=== PATIENT | female | born 1975 | race Hispanic/Latino ===

== ENCOUNTER 2017-05-26 10:24 | Emergency (ER) | payer SELFPAY ==
[~2017-05-26] VITALS: Ht 157.5 cm; Wt 93.6 kg
[~2017-05-26 10:24] MED LIST: ZOFRAN4 MG/TAB PO
[2017-05-26 11:27] LABS: HEMATOCRIT 38.3 % (37.0-47.0); HEMOGLOBIN 12.5 g/dl (12.0-16.0); IMMATURE GRANULOCYTES 0.7 % (0.0-1.0); MEAN CELL VOLUME 91.2 fL CALC (80.0-100.0); MEAN CORPUSCULAR HGB 29.8 pG CALC (26.0-32.0); MEAN CORPUSCULAR HGB CONC 32.6 g/L CALC (32.0-36.0); NEUT# 4.24 thou/uL (2.00-7.15); RED BLOOD COUNT 4.2 mill/uL (4.20-5.60); RED CELL DISTRI WIDTH 14.4 % (11.5-15.5)
[2017-05-26 11:34] LABS: BARBITURATES NEGATIVE (NEGATIVE); COCAINE NEGATIVE (NEGATIVE); METHADONE NEGATIVE (NEGATIVE); OXCYCODONE NEGATIVE (NEGATIVE); TETRAHYDROCANNABIONOL NEGATIVE (NEGATIVE); TRICYLIC ANTIDEPRESSANTS NEGATIVE (NEGATIVE)
[2017-05-26 11:51] LABS: ALKALINE PHOSPHATASE 134 u/l (38-126); ANION GAP 17 (6-22 (CALC)); BILIRUBIN, TOTAL 0.5 mg/dL (0.0-1.4); BUN 12 mg/dL (7-17); BUN/CREATININE RATIO 18 (12-20 (CALC)); CALCIUM 9.2 mg/dL (8.4-10.2); CARBON DIOXIDE 20 mmol/l (22-30); CHLORIDE 113 mmol/l (95-108); CREATININE 0.7 mg/dL (0.5-1.0); GFR > 60 ML/MIN (>=60 (CALC)); GFR FOR AFR.AMER. > 60 ML/MIN (>=60 (CALC)); GLUCOSE 92 mg/dL (65-105); POTASSIUM 4.7 mmol/l (3.5-5.1); SGOT/AST 26 u/l (14-36); SGPT/ALT 37 u/l (9-52); SODIUM 145 mmol/l (137-146); TOTAL PROTEIN 7.3 g/dL (6.3-8.2)
[2017-05-26] MEDS ORDERED: ULTRAM50 M1 PO (12:38)
[2017-05-26] MEDS ORDERED: FLEXERIL PO (12:38)
[2017-05-26 13:15] VITALS: BP 131/64
== END 2017-05-26 13:15 | disposition home or self-care (01) | DRG 552 ==
LOC: ED 10:24
PROVIDERS: Emergency Medicine
DX: S16.1XXA Strain of muscle, fascia and tendon at neck level, initial encounter (principal); G89.29 Other chronic pain; R51 Headache; M54.2 Cervicalgia; R11.0 Nausea; Z98.890 Other specified postprocedural states

== ENCOUNTER 2018-04-21 13:37 | Emergency (ER) | payer SELFPAY ==
[~2018-04-21] VITALS: Ht 157.5 cm; Wt 97.5 kg
[~2018-04-21 13:37] MED LIST changes: +FLEXERIL PO; +ULTRAM50 M1 PO
[2018-04-21] MEDS ORDERED: CLOPIDOGREL75 MG PO (14:18)
[2018-04-21] MEDS ORDERED: AMITRIPTYLIN10 MG PO (14:18)
[2018-04-21 15:00] LABS: HEMATOCRIT 38.6 % (37.0-47.0); HEMOGLOBIN 12.8 g/dl (12.0-16.0); IMMATURE GRANULOCYTES 0.5 % (0.0-5.0); MEAN CELL VOLUME 91.9 fL CALC (80.0-100.0); MEAN CORPUSCULAR HGB 30.5 pG CALC (26.0-32.0); MEAN CORPUSCULAR HGB CONC 33.2 g/L CALC (32.0-36.0); NEUT# 5.22 thou/uL (2.00-7.15); RED BLOOD COUNT 4.2 mill/uL (4.20-5.60); RED CELL DISTRI WIDTH 14.5 % (11.5-15.5)
[2018-04-21 15:17] LABS: ALBUMIN 3.6 g/dL (3.2-5.0); ALKALINE PHOSPHATASE 140 u/l (38-126); ANION GAP 12 (6-22 (CALC)); BILIRUBIN, TOTAL 0.3 mg/dL (0.0-1.4); BUN 12 mg/dL (7-17); BUN/CREATININE RATIO 17 (12-20 (CALC)); CARBON DIOXIDE 27 mmol/l (22-30); CHLORIDE 107 mmol/l (95-108); CREATININE 0.7 mg/dL (0.5-1.0); GFR > 60 ML/MIN (>=60 (CALC)); GFR FOR AFR.AMER. > 60 ML/MIN (>=60 (CALC)); POTASSIUM 4.4 mmol/l (3.5-5.1); SGOT/AST 27 u/l (14-36); SODIUM 142 mmol/l (137-146); TOTAL PROTEIN 7.1 g/dL (6.3-8.2)
[2018-04-21] MEDS ORDERED: TORADOL PO (16:17)
[2018-04-21 16:20] VITALS: BP 157/88
== END 2018-04-21 16:29 | disposition home or self-care (01) | DRG 93 ==
LOC: ED 13:37
PROVIDERS: Emergency Medicine
DX: R20.2 Paresthesia of skin (principal); M79.604 Pain in right leg; Z86.79 Personal history of other diseases of the circulatory system

== ENCOUNTER 2018-11-25 22:09 | Emergency (ER) | payer SELFPAY ==
[~2018-11-25] VITALS: Ht 157.5 cm; Wt 95.5 kg
[~2018-11-25 22:09] MED LIST changes: +AMITRIPTYLIN10 MG PO; +CLOPIDOGREL75 MG PO; +TORADOL PO
[2018-11-25 22:45] LABS: HEMATOCRIT 41.5 % (37.0-47.0); HEMOGLOBIN 13.4 g/dl (12.0-16.0); IMMATURE GRANULOCYTES 0.7 % (0.0-5.0); MEAN CELL VOLUME 90.4 fL CALC (80.0-100.0); MEAN CORPUSCULAR HGB 29.2 pG CALC (26.0-32.0); MEAN CORPUSCULAR HGB CONC 32.3 g/L CALC (32.0-36.0); NEUT# 3.95 thou/uL (2.00-7.15); RED BLOOD COUNT 4.59 mill/uL (4.20-5.60); RED CELL DISTRI WIDTH 15.9 % (11.5-15.5)
[2018-11-25 23:11] LABS: ALBUMIN 4.3 g/dL (3.2-5.0); ALKALINE PHOSPHATASE 151 u/l (38-126); ANION GAP 17 (6-22 (CALC)); BILIRUBIN, TOTAL 0.4 mg/dL (0.0-1.4); BUN 10 mg/dL (7-17); BUN/CREATININE RATIO 15 (12-20 (CALC)); CARBON DIOXIDE 23 mmol/l (22-30); CHLORIDE 106 mmol/l (95-108); CPK 51 u/l (30-165); CREATININE 0.6 mg/dL (0.5-1.0); GFR > 60 ML/MIN (>=60 (CALC)); GFR FOR AFR.AMER. > 60 ML/MIN (>=60 (CALC)); POTASSIUM 4.3 mmol/l (3.5-5.1); SGOT/AST 27 u/l (14-36); SODIUM 141 mmol/l (137-146); TOTAL PROTEIN 8.1 g/dL (6.3-8.2)
[2018-11-25 23:28] LABS: MYOGLOBIN 19 ng/mL (0 - 62)
[2018-11-25] MEDS ORDERED: LISINOPRIL10 MG PO (23:31)
[2018-11-25] MEDS ORDERED: HYDROCHLOROT12.5 MG PO (23:32)
[2018-11-25] MEDS ORDERED: ALLERGY NA50 MCG/ACT NAB (23:33)
[2018-11-25 23:39] LABS: TSH, 3RD GENERATION 6.27 uIU/mL (0.47 - 4.68)
[2018-11-26 01:00] VITALS: BP 108/70
== END 2018-11-26 01:10 | disposition home or self-care (01) | DRG 948 ==
LOC: ED 22:09
PROVIDERS: Family Medicine
DX: R53.1 Weakness (principal); R42 Dizziness and giddiness; T46.4X5A Adverse effect of angiotensin-converting-enzyme inhibitors, initial encounter; T50.2X5A Adverse effect of carbonic-anhydrase inhibitors, benzothiadiazides and other diuretics, initial encounter; I10 Essential (primary) hypertension; Z86.79 Personal history of other diseases of the circulatory system
CPT/HCPCS: J2060

== ENCOUNTER 2019-05-25 14:39 | Emergency (ER) | payer OTHER ==
[~2019-05-25] VITALS: Ht 157.5 cm; Wt 68.0 kg
[~2019-05-25 14:39] MED LIST changes: +ALLERGY NA50 MCG/ACT NAB; +HYDROCHLOROT12.5 MG PO; +LISINOPRIL10 MG PO
[2019-05-25 17:43] VITALS: BP 132/86
== END 2019-05-25 17:43 | disposition home or self-care (01) | DRG 90 ==
LOC: ED 14:39
DX: S06.0X0A Concussion without loss of consciousness, initial encounter (principal); I10 Essential (primary) hypertension; V49.50XA Passenger injured in collision with unspecified motor vehicles in traffic accident, initial encounter; Z86.79 Personal history of other diseases of the circulatory system